=== PATIENT | male | born 1955 | race Caucasian/White ===

== ENCOUNTER 2017-02-18 02:03 | Emergency (ER) | payer SELFPAY ==
[~2017-02-18] VITALS: Ht 167.6 cm; Wt 75.0 kg
[2017-02-18 02:04] VITALS: BP 182/125; PULSE 123; RESP 22; TEMP 98.1; O2SAT 96
[2017-02-18] MEDS ORDERED: IOHEXOL 350 MG/ML 10 ML VIAL (for RAD DIAG) IVCONTRAST ONE (02:04)
[2017-02-18 02:35] VITALS: BP 163/104; PULSE 86; RESP 16; O2SAT 98
[2017-02-18 03:08] VITALS: O2SAT 98
--- NOTE | 2017-02-18 03:11 | PD ---
HPI Chief Complaint: Chest Pain Time Seen by Provider: 02:56 Travel History International Travel<30 days: No Contact w/Intl Traveler<30days: No Traveled to known affect area: No History of Present Illness HPI over past 3 weeks or so has had intermittent shaking spells of body, sweat profusely and then slowly goes away. no vu/cp/abd pain/n/v/d/cough/runny nose or sore throat. no alleviating or aggravating factors noted...patient is also now c/o one day h/o right sided cp, nonrad, pressure, 5/10, sometimes occurring with sweat episodes sometimes not. 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, colostomy reversal, appy smoking quit in 1998, prior was a 1 ppd smoker for 35 yrs PFSH Past Medical History Asthma: Yes Diminished Hearing: No Tetanus Vaccination: Unknown Influenza Vaccination: No Past Surgical History Abdominal Surgery: Yes (colostomy and reversal ) Social History Alcohol Use: Yes (3-4 times week) Tobacco Use: No Substance Use: No Allergies-Medications (Allergen,Severity, Reaction): Coded Allergies: No Known Allergies (Unverified , 02/18/17) Review of Systems Except as stated in HPI: all other systems reviewed are Neg General / Constitutional: Positive: Chills Cardiovascular: Positive: Chest Pain or Discomfort, Diaphoresis Physical Exam Narrative GENERAL: SKIN: Warm and dry. HEAD: Atraumatic. Normocephalic. EYES: Pupils equal and round. No scleral icterus. No injection or drainage. ENT: No nasal bleeding or discharge. Mucous membranes pink and moist. NECK: Trachea midline. No JVD. CARDIOVASCULAR: Regular rate and rhythm. RESPIRATORY: No accessory muscle use. NO WHEEZING, HOWEVER SOME RONCHI AND CRACKLES TO LEFT LOWER LOBE REGION GASTROINTESTINAL: Abdomen soft, non-tender, nondistended. MUSCULOSKELETAL: Extremities without clubbing, cyanosis, or edema. No obvious deformities. NEUROLOGICAL: Awake and alert. No obvious cranial nerve deficits. Motor grossly within normal limits. Five out of 5 muscle strength in the arms and legs. Normal speech. PSYCHIATRIC: Appropriate mood and affect; insight and judgment normal. Data Data Last Documented VS Vital Signs Date Time Temp Pulse Resp B/P (MAP) Pulse Ox O2 Delivery O2 Flow Rate FiO2 02/18/17 04:55 98 18 145/90 (108) 98 Room Air 10/18/17 02:04 98.1 Orders Orders Complete Blood Count With Diff (02/18/17 03:03) Comprehensive Metabolic Panel (02/18/17 03:03) Ckmb (Isoenzyme) Profile (02/18/17 03:03) Troponin I (02/18/17 03:03) B-Type Natriuretic Peptide (02/18/17 03:03) Prothrombin Time / Inr (Pt) (02/18/17 03:03) Act Partial Throm Time (Ptt) (02/18/17 03:03) Lipase (02/18/17 03:03) Urinalysis - C+S If Indicated (02/18/17 03:03) D-Dimer (02/18/17 03:03) Thyroid Stimulating Hormone (02/18/17 03:03) Influenzae A/B Antigen (02/18/17 03:03) Chest, Single Ap (02/18/17 03:03) Ct Brain W/O Iv Contrast(Rout) (02/18/17 03:03) Iv Access Insert/Monitor (02/18/17 03:03) Ecg Monitoring (02/18/17 03:03) Oximetry (02/18/17 03:03) Drug Screen, Random Urine (02/18/17 03:03) Alcohol (Ethanol) (02/18/17 03:03) Salicylates (Aspirin) (02/18/17 03:03) Tylenol (Acetaminophen) (02/18/17 03:03) Aspirin Chew (Aspirin Chew) (02/18/17 03:15) Nitroglycerin Sl (Nitrostat Sl) (02/18/17 03:15) CKMB (02/18/17 03:05) CKMB% (02/18/17 03:05) Ct Pulmonary Angiogram (02/18/17 04:14) Iohexol 350 Inj (Omnipaque 350 Inj) (02/18/17 02:04) Labs Laboratory Tests Test 02/18/17 03:05 02/18/17 03:20 White Blood Count 6.2 TH/MM3 Red Blood Count 5.09 MIL/MM3 Hemoglobin 16.4 GM/DL Hematocrit 47.6 % Mean Corpuscular Volume 93.4 FL Mean Corpuscular Hemoglobin 32.3 PG Mean Corpuscular Hemoglobin Concent 34.6 % Red Cell Distribution Width 14.0 % Platelet Count 143 TH/MM3 Mean Platelet Volume 8.4 FL Neutrophils (%) (Auto) 76.1 % Lymphocytes (%) (Auto) 11.8 % Monocytes (%) (Auto) 11.5 % Eosinophils (%) (Auto) 0.2 % Basophils (%) (Auto) 0.4 % Neutrophils # (Auto) 4.7 TH/MM3 Lymphocytes # (Auto) 0.7 TH/MM3 Monocytes # (Auto) 0.7 TH/MM3 Eosinophils # (Auto) 0.0 TH/MM3 Basophils # (Auto) 0.0 TH/MM3 CBC Comment DIFF FINAL Differential Comment Prothrombin Time 11.4 SEC Prothromb Time International Ratio 1.0 RATIO Activated Partial Thromboplast Time 28.3 SEC D-Dimer Quantitative (PE/DVT) 0.58 MG/L FEU Blood Urea Nitrogen 10 MG/DL Creatinine 0.81 MG/DL Random Glucose 147 MG/DL Total Protein 8.7 GM/DL Albumin 4.5 GM/DL Calcium Level 9.1 MG/DL Alkaline Phosphatase 63 U/L Aspartate Amino Transf (AST/SGOT) 32 U/L Alanine Aminotransferase (ALT/SGPT) 22 U/L Total Bilirubin 2.1 MG/DL Sodium Level 135 MEQ/L Potassium Level 3.2 MEQ/L Chloride Level 98 MEQ/L Carbon Dioxide Level 24.0 MEQ/L Anion Gap 13 MEQ/L Estimat Glomerular Filtration Rate 97 ML/MIN Total Creatine Kinase 229 U/L Creatine Kinase MB 2.4 NG/ML Troponin I LESS THAN 0.02 NG/ML B-Type Natriuretic Peptide 36 PG/ML Lipase 219 U/L Thyroid Stimulating Hormone 3rd Gen 1.960 uIU/ML Salicylates Level LESS THAN 1.7 MG/DL Acetaminophen Level LESS THAN 2.0 MCG/ML Ethyl Alcohol Level LESS THAN 3 MG/DL Urine Color LIGHT-BROWN Urine Turbidity HAZY Urine pH 6.5 Urine Specific [place] 1.048 Urine Protein 300 mg/dL Urine Glucose (UA) NEG mg/dL Urine Ketones 80 mg/dL Urine Occult Blood NEG Urine Nitrite NEG Urine Bilirubin NEG Urine Urobilinogen 8.0 MG/DL Urine Leukocyte Esterase NEG Urine RBC 1 /hpf Urine WBC 4 /hpf Urine Squamous Epithelial Cells 1 /hpf Urine Hyaline Casts 84 /lpf Urine Granular Casts 3 /lpf Urine Mucus MANY /lpf Microscopic Urinalysis Comment CULT NOT INDICATED Urine Opiates Screen NEG Urine Barbiturates Screen NEG Urine Amphetamines Screen NEG Urine Benzodiazepines Screen NEG Urine Cocaine Screen NEG Urine Cannabinoids Screen NEG MDM Medical Decision Making Medical Screen Exam Complete: Yes Emergency Medical Condition: Yes Medical Record Reviewed: Yes Interpretation(s) sinus tach 109, lvh, lae, nl intervals, j point elev without stemi pattern Differential Diagnosis pna v pe v mi v nonstemi v htn urgency Narrative Course AFTER AN EXTENSIVE EVALUATION, NO PE, NO AK, NEG FLU, BUT CT SUGGESTS PNA WHICH IS MORE CONSISTENT. Diagnosis Primary Impression: LLL pneumonia Qualified Codes: J18.1 - Lobar pneumonia, unspecified organism Patient Instructions: Bacterial Pneumonia (ED), General Instructions Scripts Tramadol (Ultram) 50 Mg Tab 50 MG PO Q6H Y for PAIN, #20 TAB 0 Refills Prov: Dominic Strickland MD 02/18/17 Ciprofloxacin (Cipro) 500 Mg Tab 500 MG PO BID for Infection for 10 Days, #20 TAB 0 Refills Prov: Dominic Strickland MD 02/18/17 Disposition: 01 DISCHARGE HOME Condition: Stable Dominic Strickland MD Feb 18, 2017 03:11
[2017-02-18] MEDS ORDERED: NITROGLYCERIN 0.4 MG SL 25 TABS/BTL SL ONE (03:15)
[2017-02-18] MEDS ORDERED: ASPIRIN 81 MG CHEW TAB PO ONE (03:15)
[2017-02-18 03:39] LABS: AUTOMATED NEUTROPHIL # 4.7 TH/MM3 (1.8-7.7); BASOPHIL % 0.4 % (0.0-2.0); EOSINOPHIL % 0.2 % (0.0-4.0); HEMATOCRIT 47.6 % (39.0-51.0); HEMO FLAGS DIFF FINAL; LYMPH % 11.8 % (9.0-44.0); LYMPHOCYTE # 0.7 TH/MM3 (1.0-4.8); MEAN CELL VOLUME 93.4 FL (80.0-100.0); MEAN CORPUSCULAR HEMOGLOBIN 32.3 PG (27.0-34.0); MEAN CORPUSCULAR HGB CONC 34.6 % (32.0-36.0); MONO % 11.5 % (0.0-8.0); NEUT % 76.1 % (16.0-70.0); PLATELET COUNT 143 TH/MM3 (150-450); RED BLOOD COUNT 5.09 MIL/MM3 (4.50-5.90); WHITE BLOOD COUNT 6.2 TH/MM3 (4.0-11.0)
[2017-02-18 03:47] LABS: BLOOD, URINE NEG (NEG); COMMENT (UR) CULT NOT INDICATED; CULTURE IF INDICATED CULT NOT INDICATED; GLUCOSE,URINE NEG (NEG); GRANULAR CAST, URINE 3 /lpf; HYALINE CAST, URINE 84 /lpf (RARE); KETONE, URINE 80 mg/dL (NEG); MUCUS URINE MANY /lpf (OCC); NITRITE,URINE NEG (NEG); PH, URINE 6.5 (5.0-8.5); SQUAMOUS EPITHELIAL CELL URINE 1 /hpf (0-5)
[2017-02-18 03:48] LABS: URINE COLOR LIGHT-BROWN (YELLW/STRAW)
[2017-02-18 03:51] LABS: ANION GAP 13 MEQ/L (5-15); AST (GOT) 32 U/L (15-37); BLOOD UREA NITROGEN 10 MG/DL (7-18); CHLORIDE 98 MEQ/L (98-107); GLOMERULAR FILTRATION RATE 97 ML/MIN (>89); POTASSIUM 3.2 MEQ/L (3.5-5.1); SODIUM (NA) 135 MEQ/L (136-145)
--- NOTE | 2017-02-18 03:51 | RADRPT ---
EXAM DATE/TIME: 02/18/2017 03:30 [facility] COMPARISON: No previous studies available for comparison. INDICATIONS : Short of breath. MEDICAL HISTORY : None. SURGICAL HISTORY : None. ENCOUNTER: Initial ACUITY: 1 day PAIN SCORE: 0/10 LOCATION: Bilateral chest FINDINGS: The cardiac silhouette is enlarged in transverse diameter. There is elevation of the left hemidiaphra gm. The lungs are free of acute parenchymal opacity. No effusions are identified. CONCLUSION: 1. Cardiomegaly. No acute pulmonary disease. 2. Elevation left hemidiaphragm of uncertain etiology. CT scan is recommended for further evaluation if clinically indicated. Tony Gillette MD on February 18, 2017 at 3:49 Board Certified Radiologist. This report was verified electronically.
[2017-02-18 03:56] LABS: APTT (PATIENT) 28.3 SEC (24.3-30.1); PROTHROMBIN TIME - PATIENT 11.4 SEC (9.8-11.6)
[2017-02-18 04:00] LABS: ALKALINE PHOSPHATASE 63 U/L (45-117); ALT (GPT) 22 U/L (12-78); CREATINE KINASE 229 U/L (39-308); TOTAL BILIRUBIN ADULT 2.1 MG/DL (0.2-1.0)
[2017-02-18 04:04] LABS: ACETAMINOPHEN LESS THAN 2.0 MCG/ML (10.0-30.0); ALCOHOL LESS THAN 3 MG/DL (0-5)
[2017-02-18 04:13] LABS: CKMB 2.4 NG/ML (0.5-3.6)
--- NOTE | 2017-02-18 04:28 | RADRPT ---
EXAM DATE/TIME: 02/18/2017 03:48 [facility] COMPARISON: No previous studies available for comparison. INDICATIONS : Altered mental status. RADIATION DOSE: 32.24 CTDIvol (mGy) MEDICAL HISTORY : None SURGICAL HISTORY : None. ENCOUNTER: Initial ACUITY: 1 day PAIN SCALE: 0/10 LOCATION: cranial TECHNIQUE: Multiple contiguous axial images were obtained of the head. Using automated exposure control and adj ustment of the mA and/or kV according to patient size, radiation dose was kept as low as reasonably a chievable to obtain optimal diagnostic quality images. DICOM format image data is available electro nically for review and comparison. FINDINGS: CEREBRUM: The ventricles are normal for age. No evidence of midline shift, mass lesion, hemorrhage or acute in farction. No extra-axial fluid collections are seen. POSTERIOR FOSSA: The cerebellum and brainstem are intact. The 4th ventricle is midline. The cerebellopontine angle i s unremarkable. EXTRACRANIAL: The visualized portion of the orbits is intact. SKULL: The calvaria is intact. No evidence of skull fracture. CONCLUSION: 1. No evidence of acute intracranial pathology. No masses are identified. Tony Gillette MD on February 18, 2017 at 4:26 Board Certified Radiologist. This report was verified electronically.
[2017-02-18 04:55] VITALS: BP 145/90; PULSE 98; RESP 18; O2SAT 98
--- NOTE | 2017-02-18 05:39 | RADRPT ---
EXAM DATE/TIME: 02/18/2017 05:23 [facility] COMPARISON: No previous studies available for comparison. INDICATIONS : Tightness in chest. Evaluate for emboli. IV CONTRAST: 70 cc Omnipaque 350 (iohexol) IV RADIATION DOSE: 23.53 CTDIvol (mGy) MEDICAL HISTORY : Asthma SURGICAL HISTORY : Colostomy. ENCOUNTER: Initial ACUITY: 1 day PAIN SCALE: 5/10 LOCATION: Bilateral chest TECHNIQUE: Volumetric scanning of the chest was performed using a pulmonary embolism protocol MIP images were re constructed. Using automated exposure control and adjustment of the mA and/or kV according to patien t size, radiation dose was kept as low as reasonably achievable to obtain optimal diagnostic quality images. DICOM format image data is available electronically for review and comparison. Follow-up recommendations for detected pulmonary nodules are based at a minimum on nodule size and pa tient risk factors according to Fleischner Society Guidelines. FINDINGS: Examination of the pulmonary vasculature demonstrates good filling of the main, lobar and segmental b ranches. There are no filling defects to suggest pulmonary embolism. Multiplanar reconstructions are also unremarkable. There is elevation of the left hemidiaphragm. The etiology is uncertain. There is atelectasis in the left lower lobe. No pulmonary nodules are identified. No pleural effusions are identified. Examinatio n of the mediastinum demonstrates no abnormally enlarged lymph nodes by CT criteria. No axillary or h ilar abnormalities are identified. Coronary artery calcifications are not present. CONCLUSION: 1. No evidence of pulmonary embolism. 2. Left lower lobe atelectasis Tony Gillette MD on February 18, 2017 at 5:35 Board Certified Radiologist. This report was verified electronically.
[2017-02-18] MEDS ORDERED: CIPR-9 PO (06:14)
[2017-02-18] MEDS ORDERED: ULTR50TA5 PO (06:14)
[2017-02-18] MEDS ORDERED: LEVOFLOXACIN 750 MG TAB PO ONE (06:30)
--- NOTE | 2017-02-18 13:53 | EKG ---
Date Performed: 02/18/2017 Time Performed: 02:18:01 PTAGE: 61 years EKG: SINUS TACHYCARDIA POSSIBLE LEFT ATRIAL ENLARGEMENT ABNORMAL RHYTHM ECG NO PREVIOUS TRACING DOCTOR: Ki Jolly Interpretating Date/Time 02/18/2017 13:45:13
== END 2017-02-18 06:45 | disposition home or self-care (01) ==
LOC: NEPC 02:03
DX: J18.1 Lobar pneumonia, unspecified organism (principal); R07.89 Other chest pain; R94.31 Abnormal electrocardiogram [ECG] [EKG]; Z87.09 Personal history of other diseases of the respiratory system
CPT/HCPCS: 70450; 71010; 71275; 80053; 80307; 81001; 82550; 82552; 83690; 83880; 84443; 84484; 85025; 85379; 85610; 85730; 87804; 93005; 99285; Q9967